=== PATIENT | female | born 1950 | race Caucasian/White ===

== ENCOUNTER 2018-06-23 11:02 | Outpatient (CLI) | payer MEDICARE, BC | END 2018-06-23 11:03 | disposition home or self-care (01) | LOC: BICMAMMO 11:02 | PROVIDERS: ATTEND Nurse Practitioner Family | DX: Z12.31 Encounter for screening mammogram for malignant neoplasm of breast (principal) | CPT/HCPCS: 77063; 77067 ==

== ENCOUNTER 2019-05-31 12:29 | Emergency (ER) | payer MEDICARE, BC | END 2019-05-31 12:55 | disposition home or self-care (01) | LOC: ERS 12:29 | DX: S91.012A Laceration without foreign body, left ankle, initial encounter (principal); I10 Essential (primary) hypertension; E03.9 Hypothyroidism, unspecified; Z86.73 Personal history of transient ischemic attack (TIA), and cerebral infarction without residual deficits; Z87.891 Personal history of nicotine dependence; Z79.82 Long term (current) use of aspirin; Z79.899 Other long term (current) drug therapy; W26.8XXA Contact with other sharp object(s), not elsewhere classified, initial encounter | CPT/HCPCS: 12001 ==